=== PATIENT | male | born 1940 | race Caucasian/White ===

== ENCOUNTER → 2017-10-12 | Outpatient (CLI) | payer MEDICARE, OTHER ==
[~2017-10-12] MED LIST: ASPI81EC; ATEN50; CIPR500; Cipro500 MG PO; FIBE4P; Flagyl500 MG PO; HYDACE25S PR; IBUP400; JALYN 0.5-0.41 EACH; KETO15TC TP; LAVAP17G; Norco 7.5-3251 EACH PO; PROBIOTIC1 EAC1 PO; PSYL5.85P; ROSU10TA; Zofran Odt4 MG SL
== END | disposition home or self-care (01) ==
LOC: PLD 14:13 → LAB SHORT 14:13
DX: L57.0 Actinic keratosis (principal); B88.0 Other acariasis
CPT/HCPCS: 88305

== ENCOUNTER → 2017-11-16 | Outpatient (CLI) | payer MEDICARE, OTHER | END | disposition home or self-care (01) | LOC: LAB EV 13:02 | DX: R05 Cough (principal) | CPT/HCPCS: 83880 ==

== ENCOUNTER 2020-07-04 17:56 | Emergency (ER) | payer MEDICARE, OTHER ==
[~2020-07-04] VITALS: Ht 167.6 cm; Wt 79.4 kg
[~2020-07-04 17:56] MED LIST changes: -ATEN50; +ATEN50 PO; +BENZ100A PO; +OMEP20ER PO; +Prednisone20 MG PO; -ROSU10TA; +ROSU10TA PO; +Ventolin5 MG/1 ML INH
[2020-07-04] MEDS ORDERED: ASPI81CH PO (18:44)
[2020-07-04] MEDS ORDERED: TAMS.4ER PO (18:45)
[2020-07-04] MEDS ORDERED: KEFLEX500 MG PO (20:14)
== END 2020-07-04 20:21 | disposition home or self-care (01) ==
LOC: ER 17:56
DX: S01.511A Laceration without foreign body of lip, initial encounter (principal); K02.9 Dental caries, unspecified; S50.811A Abrasion of right forearm, initial encounter
CPT/HCPCS: 12011; 99282-25; A9270-GY

== ENCOUNTER 2020-07-04 23:12 | Emergency (ER) | payer MEDICARE, OTHER ==
[~2020-07-04] VITALS: Ht 167.6 cm; Wt 77.1 kg
[~2020-07-04 23:12] MED LIST changes: +ASPI81CH PO; +KEFLEX500 MG PO; +TAMS.4ER PO
== END 2020-07-05 01:13 | disposition home or self-care (01) ==
LOC: ER 23:12
DX: S01.511D Laceration without foreign body of lip, subsequent encounter (principal); I25.2 Old myocardial infarction; I48.91 Unspecified atrial fibrillation; Z79.82 Long term (current) use of aspirin; Z95.5 Presence of coronary angioplasty implant and graft; Z87.891 Personal history of nicotine dependence; Z79.899 Other long term (current) drug therapy; W27.0XXD Contact with workbench tool, subsequent encounter
CPT/HCPCS: 99282

== ENCOUNTER → 2020-10-14 | Outpatient (CLI) | payer MEDICARE, OTHER | END | disposition home or self-care (01) | LOC: PLD 08:09 → LAB SHORT 08:09 | DX: L57.0 Actinic keratosis (principal) | CPT/HCPCS: 88305 ==

== ENCOUNTER → 2021-10-28 | Outpatient (CLI) | payer MEDICARE, OTHER | END | disposition home or self-care (01) | LOC: LAB SHORT 07:50 | DX: C44.219 Basal cell carcinoma of skin of left ear and external auricular canal (principal); L57.0 Actinic keratosis | CPT/HCPCS: 88305 ==